=== PATIENT | male | born 1950 | race Caucasian/White ===

== ENCOUNTER → 2020-05-15 | Outpatient (CLI) | payer MEDICARE, OTHER ==
[~2020-05-15] MED LIST: AMLODIPINE BESY10 MG PO; ASPIR 8181 MG PO; ATORVASTATIN CA40 MG PO; CATAPRES0.3 MG PO; CIPRO500 MG PO; CLOPIDOGREL75 MG PO; ELIQUIS 5 MG TAB5 MG PO; GLUCOPHAGE500 MG PO; HYDRALAZINE HCL50 MG PO; HYDROCHLOROTHIA25 MG PO; K-TAB ER20 MEQ PO; LANTUS INS100 UTS/M1 SC; LASIX20 MG PO; LOPRESSOR 50 MG50 MG PO; LORTAB 7.5-3251 EACH PO; MAALOX PLUS 3030 ML PO; MEROPENEM1 GM IV; NIFEDIPINE ER30 M1 PO; NOVOLIN 70100 UNIT/2 SQ; ONDANSETRON4 MG/2 M2 IVP; POTASSIUM CHLO10 ME1 PO; PRINIVIL20 MG PO; PROTONIX40 MG PO; SANTYL OINT 3030 GM TOP; TOPROL XL50 MG PO
== END ==
LOC: WCC 07:49
PROC: 0JBP0ZZ Excision of Left Lower Leg Subcutaneous Tissue and Fascia, Open Approach (ICD-10-PCS; principal; 2020-05-15)
DX: T87.89 Other complications of amputation stump (principal); Z89.512 Acquired absence of left leg below knee; E11.69 Type 2 diabetes mellitus with other specified complication; R60.1 Generalized edema; I48.20 Chronic atrial fibrillation, unspecified; I10 Essential (primary) hypertension; Z79.4 Long term (current) use of insulin; Z79.899 Other long term (current) drug therapy

== ENCOUNTER → 2020-05-23 | Outpatient (CLI) | payer MEDICARE, OTHER | LOC: WCC 07:46 | DX: T87.89 Other complications of amputation stump (principal); E11.69 Type 2 diabetes mellitus with other specified complication; R60.1 Generalized edema; I48.20 Chronic atrial fibrillation, unspecified; I10 Essential (primary) hypertension; Z89.512 Acquired absence of left leg below knee; Z79.02 Long term (current) use of antithrombotics/antiplatelets; Z79.4 Long term (current) use of insulin ==

== ENCOUNTER → 2020-05-29 | Outpatient (CLI) | payer MEDICARE, OTHER | LOC: WCC 08:05 | DX: E11.69 Type 2 diabetes mellitus with other specified complication (principal); T87.89 Other complications of amputation stump; R60.1 Generalized edema; I48.20 Chronic atrial fibrillation, unspecified; I10 Essential (primary) hypertension; Z89.512 Acquired absence of left leg below knee | CPT/HCPCS: G0463 ==

== ENCOUNTER → 2020-06-05 | Outpatient (CLI) | payer MEDICARE, OTHER | LOC: WCC 08:00 | DX: T87.89 Other complications of amputation stump (principal); E11.69 Type 2 diabetes mellitus with other specified complication; I48.20 Chronic atrial fibrillation, unspecified; I10 Essential (primary) hypertension; R60.1 Generalized edema | CPT/HCPCS: G0463; J1940 ==

== ENCOUNTER → 2020-09-10 | Outpatient (CLI) | payer MEDICARE, OTHER | LOC: NM 09-09 10:00 → ECHO 09-09 12:00 | DX: I48.91 Unspecified atrial fibrillation (principal); E11.9 Type 2 diabetes mellitus without complications; I99.8 Other disorder of circulatory system; R94.39 Abnormal result of other cardiovascular function study | CPT/HCPCS: ECHO; 78452; 93017; 93306; A9502; J2785 ==

== ENCOUNTER 2020-12-15 22:34 | Inpatient (IN) | payer MEDICARE, OTHER ==
[~2020-12-15] VITALS: Ht 172.7 cm; Wt 82.8 kg
[2020-12-16 01:12] LABS: RED BLOOD COUNT 5.35 M/UL (4.20-5.50); WHITE BLOOD COUNT 7.6 K/UL (4.5-11.0)
[2020-12-16] MEDS ORDERED: FUROSEMIDE40 MG PO (10:09)
[2020-12-16] MEDS ORDERED: PROTONIX 40 MG40 M1 PO (10:11)
[2020-12-16] MEDS ORDERED: FINASTERIDE5 MG PO (10:14)
[2020-12-16] MEDS ORDERED: DILTIAZEM ER240 M1 PO (10:14)
[2020-12-16] MEDS ORDERED: ISOSORBIDE DINI10 MG PO (10:15)
[2020-12-16] MEDS ORDERED: CARVEDILOL25 MG PO (10:16)
[2020-12-16] MEDS ORDERED: [UNRECOGNIZED DRUG - CODE] SC (10:18)
[2020-12-16] MEDS ORDERED: ADULT LOW DOSE81 MG PO (10:19)
[2020-12-16] MEDS ORDERED: COMPLETE SENIO1 EACH PO (10:19)
[2020-12-16] MEDS ORDERED: MELATONIN10 M2 PO (10:21)
[2020-12-16] MEDS ORDERED: COLLAGEN PLUS1 EACH PO (10:21)
[2020-12-16] MEDS ORDERED: TYLENOL EXTRA500 MG PO (10:22)
[2020-12-16] MEDS ORDERED: HYDRALAZINE HCL50 MG PO (10:33)
[2020-12-17 03:21] LABS: HEMOGLOBIN 12.7 gm/dl (14.0-17.5); RED BLOOD COUNT 5.29 M/UL (4.20-5.50)
[2020-12-17 03:30] LABS: WHITE BLOOD COUNT 12.1 K/UL (4.5-11.0)
[2020-12-17 03:44] LABS: BUN/CREATININE RATIO 30 (0-10)
[2020-12-18 04:49] LABS: RED BLOOD COUNT 5.4 M/UL (4.20-5.50)
[2020-12-18 04:52] LABS: WHITE BLOOD COUNT 15.8 K/UL (4.5-11.0)
[2020-12-18 05:32] LABS: BUN/CREATININE RATIO 34 (0-10)
[2020-12-19 03:49] LABS: HEMOGLOBIN 13.4 gm/dl (14.0-17.5); RED BLOOD COUNT 5.57 M/UL (4.20-5.50); WHITE BLOOD COUNT 19.6 K/UL (4.5-11.0)
[2020-12-20 07:35] LABS: HEMOGLOBIN 13.3 gm/dl (14.0-17.5); RED BLOOD COUNT 5.55 M/UL (4.20-5.50); WHITE BLOOD COUNT 14.7 K/UL (4.5-11.0)
== END 2020-12-20 14:32 | disposition home health service (06) | DRG 177 ==
LOC: ER1 22:34 → CDU 12-16 02:54 → M/S 12-16 02:54 → EDBD 12-20 14:32
PROVIDERS: Internal Medicine; Physician Assistant; ADMIT Internal Medicine
PROC: 3E0333Z Introduction of Anti-inflammatory into Peripheral Vein, Percutaneous Approach (ICD-10-PCS; principal; 2020-12-16)
PROC: XW033E5 Introduction of Remdesivir Anti-infective into Peripheral Vein, Percutaneous Approach, New Technology Group 5 (ICD-10-PCS; principal; 2020-12-16)
PROC: XW13325 Transfusion of Convalescent Plasma (Nonautologous) into Peripheral Vein, Percutaneous Approach, New Technology Group 5 (ICD-10-PCS; 2020-12-16)
PROC: 8E0ZXY6 Isolation (ICD-10-PCS; 2020-12-16)
DX: U07.1 COVID-19 (principal); J12.82 Pneumonia due to coronavirus disease 2019; J96.01 Acute respiratory failure with hypoxia; I48.20 Chronic atrial fibrillation, unspecified; N17.9 Acute kidney failure, unspecified; D72.828 Other elevated white blood cell count; L89.322 Pressure ulcer of left buttock, stage 2; I12.9 Hypertensive chronic kidney disease with stage 1 through stage 4 chronic kidney disease, or unspecified chronic kidney disease; N18.30 Chronic kidney disease, stage 3 unspecified; L89.151 Pressure ulcer of sacral region, stage 1; L89.311 Pressure ulcer of right buttock, stage 1; I73.9 Peripheral vascular disease, unspecified; T38.0X5A Adverse effect of glucocorticoids and synthetic analogues, initial encounter; E11.65 Type 2 diabetes mellitus with hyperglycemia; E11.22 Type 2 diabetes mellitus with diabetic chronic kidney disease; E11.51 Type 2 diabetes mellitus with diabetic peripheral angiopathy without gangrene; Z79.82 Long term (current) use of aspirin; Z79.4 Long term (current) use of insulin; Z79.01 Long term (current) use of anticoagulants; Z89.512 Acquired absence of left leg below knee; Z89.422 Acquired absence of other left toe(s); Z83.3 Family history of diabetes mellitus; Z82.49 Family history of ischemic heart disease and other diseases of the circulatory system; K59.00 Constipation, unspecified
CPT/HCPCS: 36415; 36600; 71045; 80048; 80053; 81001; 82803; 82962; 83735; 83880; 84100; 84484; 85025; 85027; 86140; 86900; 86901; 86927; 87040; 93005; 96374; 97162; 97166; 99285; A6212; J0360; J1100; J1650; J3475; J7030; U0002

== ENCOUNTER → 2021-01-09 | Outpatient (CLI) | payer MEDICARE, OTHER ==
[~2021-01-09] MED LIST changes: +ADULT LOW DOSE81 MG PO; +CARVEDILOL25 MG PO; +COLLAGEN PLUS1 EACH PO; +COMPLETE SENIO1 EACH PO; +DILTIAZEM ER240 M1 PO; +FINASTERIDE5 MG PO; +FUROSEMIDE40 MG PO; +ISOSORBIDE DINI10 MG PO; +MELATONIN10 M2 PO; +PROTONIX 40 MG40 M1 PO; +TYLENOL EXTRA500 MG PO; +[UNRECOGNIZED DRUG - CODE] SC
== END ==
LOC: HEART 5 14:18
DX: I50.9 Heart failure, unspecified (principal); I27.20 Pulmonary hypertension, unspecified; R06.02 Shortness of breath
CPT/HCPCS: 94060; 94729

== ENCOUNTER 2021-07-29 20:13 | Inpatient (IN) | payer MEDICARE, OTHER ==
[~2021-07-29] VITALS: Ht 172.7 cm; Wt 100.0 kg
[2021-07-29 21:21] LABS: HEMOGLOBIN 10.8 gm/dl (14.0-17.5); RED BLOOD COUNT 4.76 M/UL (4.20-5.50); WHITE BLOOD COUNT 9.1 K/UL (4.5-11.0)
[2021-07-30 08:18] LABS: HEMOGLOBIN 10.6 gm/dl (14.0-17.5); RED BLOOD COUNT 4.75 M/UL (4.20-5.50); WHITE BLOOD COUNT 9.6 K/UL (4.5-11.0)
[2021-07-31 06:06] LABS: HEMOGLOBIN 10.3 gm/dl (14.0-17.5); RED BLOOD COUNT 4.72 M/UL (4.20-5.50); WHITE BLOOD COUNT 8.5 K/UL (4.5-11.0)
[2021-08-01 06:21] LABS: HEMOGLOBIN 9.8 gm/dl (14.0-17.5); RED BLOOD COUNT 4.36 M/UL (4.20-5.50)
[2021-08-02 05:53] LABS: HEMOGLOBIN 10.6 gm/dl (14.0-17.5); RED BLOOD COUNT 4.68 M/UL (4.20-5.50); WHITE BLOOD COUNT 8.6 K/UL (4.5-11.0)
[2021-08-04 06:15] LABS: HEMOGLOBIN 10.3 gm/dl (14.0-17.5); RED BLOOD COUNT 4.58 M/UL (4.20-5.50)
[2021-08-05 02:56] LABS: RED BLOOD COUNT 4.47 M/UL (4.20-5.50); WHITE BLOOD COUNT 7.7 K/UL (4.5-11.0)
[2021-08-06 02:25] LABS: HEMOGLOBIN 10.2 gm/dl (14.0-17.5); RED BLOOD COUNT 4.53 M/UL (4.20-5.50); WHITE BLOOD COUNT 8.1 K/UL (4.5-11.0)
[2021-08-07 06:12] LABS: HEMOGLOBIN 10.6 gm/dl (14.0-17.5); RED BLOOD COUNT 4.74 M/UL (4.20-5.50); WHITE BLOOD COUNT 7.7 K/UL (4.5-11.0)
[2021-08-08 06:10] LABS: HEMOGLOBIN 10.9 gm/dl (14.0-17.5); RED BLOOD COUNT 4.85 M/UL (4.20-5.50); WHITE BLOOD COUNT 8.4 K/UL (4.5-11.0)
[2021-08-09 05:06] LABS: HEMOGLOBIN 11.3 gm/dl (14.0-17.5); RED BLOOD COUNT 5.02 M/UL (4.20-5.50); WHITE BLOOD COUNT 9.1 K/UL (4.5-11.0)
[2021-08-10 02:53] LABS: HEMOGLOBIN 11.9 gm/dl (14.0-17.5); RED BLOOD COUNT 5.27 M/UL (4.20-5.50); WHITE BLOOD COUNT 17.1 K/UL (4.5-11.0)
[2021-08-11 05:59] LABS: HEMOGLOBIN 11.4 gm/dl (14.0-17.5); RED BLOOD COUNT 5.06 M/UL (4.20-5.50); WHITE BLOOD COUNT 14.3 K/UL (4.5-11.0)
[2021-08-11] MEDS ORDERED: CATAPRES 0.1MG0.1 MG PO (13:06)
[2021-08-11] MEDS ORDERED: CHRONULAC20 GM/30 M PO (13:06)
[2021-08-11] MEDS ORDERED: ELIQUIS 5 MG TAB5 MG PO (13:06)
[2021-08-11] MEDS ORDERED: BUMETANIDE1 MG PO (13:06)
[2021-08-11] MEDS ORDERED: HYDRALAZINE HCL50 MG PO (13:06)
--- NOTE | 2021-08-11 16:55 | NUR ---
CALLED REPORT TO RISSA REECE RN AT [facility] AT [phone].
== END 2021-08-11 18:55 | disposition home or self-care (01) | DRG 286 ==
LOC: ER1 20:13 → MED SURG 4 07-30 07:11 → CDU 07-30 07:11 → MED SURG 4 07-30 08:49
PROVIDERS: Emergency Medicine; Internal Medicine; Internal Medicine Cardiovascular Disease; Physician Assistant Medical; ADMIT Internal Medicine
PROC: B24BZZZ Ultrasonography of Heart with Aorta (ICD-10-PCS; 2021-07-30)
PROC: B2111ZZ Fluoroscopy of Multiple Coronary Arteries using Low Osmolar Contrast (ICD-10-PCS; principal; 2021-08-06)
PROC: 4A023N8 Measurement of Cardiac Sampling and Pressure, Bilateral, Percutaneous Approach (ICD-10-PCS; 2021-08-06)
DX: I13.0 Hypertensive heart and chronic kidney disease with heart failure and stage 1 through stage 4 chronic kidney disease, or unspecified chronic kidney disease (principal); I50.33 Acute on chronic diastolic (congestive) heart failure; J96.21 Acute and chronic respiratory failure with hypoxia; I48.20 Chronic atrial fibrillation, unspecified; E87.3 Alkalosis; E66.2 Morbid (severe) obesity with alveolar hypoventilation; N17.9 Acute kidney failure, unspecified; Z20.822 Contact with and (suspected) exposure to COVID-19; E11.40 Type 2 diabetes mellitus with diabetic neuropathy, unspecified; E11.51 Type 2 diabetes mellitus with diabetic peripheral angiopathy without gangrene; E11.22 Type 2 diabetes mellitus with diabetic chronic kidney disease; I27.20 Pulmonary hypertension, unspecified; N18.30 Chronic kidney disease, stage 3 unspecified; I73.9 Peripheral vascular disease, unspecified; N40.0 Benign prostatic hyperplasia without lower urinary tract symptoms; R53.81 Other malaise; K59.00 Constipation, unspecified; I27.81 Cor pulmonale (chronic); Z89.512 Acquired absence of left leg below knee; Z79.01 Long term (current) use of anticoagulants; Z95.828 Presence of other vascular implants and grafts; Z82.49 Family history of ischemic heart disease and other diseases of the circulatory system; Z83.3 Family history of diabetes mellitus; Z79.4 Long term (current) use of insulin; Z79.82 Long term (current) use of aspirin; Z79.899 Other long term (current) drug therapy; Z87.891 Personal history of nicotine dependence; Z68.33 Body mass index [BMI] 33.0-33.9, adult
CPT/HCPCS: ECHO; 0240U; 36415; 36600; 71045; 78580; 80048; 80053; 81001; 82436; 82550; 82553; 82570; 82607; 82803; 82962; 83036; 83735; 83880; 84100; 84133; 84156; 84300; 84484; 84550; 85025; 85027; 85379; 85610; 85730; 86140; 87040; 93005; 93306; 93970; 96374; 97110-GP-CQ; 97116; 97162; 97530; 97530-GP-CQ; 99285; A6212; A9540; C1751; C1894; C9113; J1335; J1644; J1650; J1940; J2405; Q9965; U0002

== ENCOUNTER → 2021-09-10 | Outpatient (CLI) | payer MEDICARE, OTHER ==
[~2021-09-10] MED LIST changes: +BUMETANIDE1 MG PO; +CATAPRES 0.1MG0.1 MG PO; +CHRONULAC20 GM/30 M PO
== END ==
LOC: EXRD 08:00
DX: Z86.16 Personal history of COVID-19 (principal)
CPT/HCPCS: 71046

== ENCOUNTER 2021-10-07 17:25 | Emergency (ER) | payer OTHER, MEDICARE ==
[2021-10-07 18:54] LABS: HEMOGLOBIN 13.2 gm/dl (14.0-17.5); RED BLOOD COUNT 5.15 M/UL (4.20-5.50); WHITE BLOOD COUNT 14.7 K/UL (4.5-11.0)
== END 2021-10-07 21:15 | disposition home or self-care (01) ==
LOC: ER1 17:25
PROVIDERS: Family Medicine
DX: E11.65 Type 2 diabetes mellitus with hyperglycemia (principal); E11.22 Type 2 diabetes mellitus with diabetic chronic kidney disease; I13.0 Hypertensive heart and chronic kidney disease with heart failure and stage 1 through stage 4 chronic kidney disease, or unspecified chronic kidney disease; N18.30 Chronic kidney disease, stage 3 unspecified; I50.30 Unspecified diastolic (congestive) heart failure; I48.91 Unspecified atrial fibrillation; Z79.01 Long term (current) use of anticoagulants; Z89.512 Acquired absence of left leg below knee; Z79.899 Other long term (current) drug therapy
CPT/HCPCS: 80048; 85025; 93005; 99283

== ENCOUNTER 2021-10-18 20:06 | Inpatient (IN) | payer MEDICARE, OTHER ==
[~2021-10-18] VITALS: Ht 172.7 cm; Wt 88.5 kg
[~2021-10-18 20:06] MED LIST changes: -[UNRECOGNIZED DRUG - CODE] SC; +[UNRECOGNIZED DRUG - CODE] SQ
[2021-10-18 23:19] LABS: HEMOGLOBIN 12.5 gm/dl (14.0-17.5); RED BLOOD COUNT 4.81 M/UL (4.20-5.50); WHITE BLOOD COUNT 13.8 K/UL (4.5-11.0)
[2021-10-20 06:00] LABS: HEMOGLOBIN 12.1 gm/dl (14.0-17.5); RED BLOOD COUNT 4.62 M/UL (4.20-5.50); WHITE BLOOD COUNT 12.7 K/UL (4.5-11.0)
[2021-10-22] MEDS ORDERED: COZAAR25 MG PO (10:23)
[2021-10-22] MEDS ORDERED: SPIRONOLACTONE25 MG PO (10:23)
[2021-10-22 13:40] LABS: HEMOGLOBIN 12.6 gm/dl (14.0-17.5); RED BLOOD COUNT 4.81 M/UL (4.20-5.50); WHITE BLOOD COUNT 12.6 K/UL (4.5-11.0)
[2021-10-23 05:40] LABS: HEMOGLOBIN 12.7 gm/dl (14.0-17.5); RED BLOOD COUNT 4.76 M/UL (4.20-5.50); WHITE BLOOD COUNT 13.1 K/UL (4.5-11.0)
[2021-10-24 06:11] LABS: HEMOGLOBIN 13.3 gm/dl (14.0-17.5); WHITE BLOOD COUNT 12.1 K/UL (4.5-11.0)
--- NOTE | 2021-10-24 09:30 | NUR ---
Patient refuses to wear tele. MD notified.
[2021-10-24] MEDS ORDERED: AMLODIPINE BESY10 MG PO (16:58)
[2021-10-24] MEDS ORDERED: BUMETANIDE1 MG PO ×2 (16:58→17:57)
[2021-10-24] MEDS ORDERED: LEVOFLOXACIN500 MG PO (17:35)
[2021-10-24] MEDS ORDERED: CLEOCIN HCL300 MG PO (17:35)
[2021-10-24] MEDS ORDERED: K-TAB ER10 MEQ PO (17:46)
[2021-10-24] MEDS ORDERED: LACTINEX TABLET1 EA PO (18:07)
== END 2021-10-25 00:08 | disposition home health service (06) | DRG 264 ==
LOC: ER1 20:06 → CDU 10-21 13:30 → MED SURG 4 10-21 13:30
PROVIDERS: Internal Medicine; Physician Assistant Medical; Surgery; ADMIT Internal Medicine
PROC: 0JBQ0ZZ Excision of Right Foot Subcutaneous Tissue and Fascia, Open Approach (ICD-10-PCS; principal; 2021-10-23 14:19)
DX: E11.52 Type 2 diabetes mellitus with diabetic peripheral angiopathy with gangrene (principal); I13.0 Hypertensive heart and chronic kidney disease with heart failure and stage 1 through stage 4 chronic kidney disease, or unspecified chronic kidney disease; I96 Gangrene, not elsewhere classified; I50.32 Chronic diastolic (congestive) heart failure; L03.115 Cellulitis of right lower limb; I48.20 Chronic atrial fibrillation, unspecified; E11.621 Type 2 diabetes mellitus with foot ulcer; L97.519 Non-pressure chronic ulcer of other part of right foot with unspecified severity; I73.9 Peripheral vascular disease, unspecified; N18.30 Chronic kidney disease, stage 3 unspecified; E66.01 Morbid (severe) obesity due to excess calories; E87.6 Hypokalemia; E11.69 Type 2 diabetes mellitus with other specified complication; I27.20 Pulmonary hypertension, unspecified; I27.81 Cor pulmonale (chronic); E11.22 Type 2 diabetes mellitus with diabetic chronic kidney disease; Z89.612 Acquired absence of left leg above knee; Z89.422 Acquired absence of other left toe(s); Z95.1 Presence of aortocoronary bypass graft; Z83.3 Family history of diabetes mellitus; Z82.49 Family history of ischemic heart disease and other diseases of the circulatory system; Z79.01 Long term (current) use of anticoagulants; Z79.899 Other long term (current) drug therapy; Z68.29 Body mass index [BMI] 29.0-29.9, adult
CPT/HCPCS: 36415; 73630; 80048; 80053; 80202; 82550; 82553; 82565; 82962; 84484; 85025; 85027; 85610; 85652; 85730; 86140; 93005; 94760; 96374; 99284; J2001; J2185; J2543; J2704; J3370; J7070; P9047